=== PATIENT | female | born 1960 | race Caucasian/White ===

== ENCOUNTER 2023-06-11 17:28 | Outpatient (RCR) | payer OTHER, SELFPAY | END 2023-06-11 23:59 | disposition home or self-care (01) | LOC: RPT 17:28 | PROVIDERS: ATTENDING PHYSICIAN Obstetrics & Gynecology; PRIMARYCARE PHYSICIAN Physician Assistant Medical | DX: N39.41 Urge incontinence (principal); R35.1 Nocturia; Z73.6 Limitation of activities due to disability; M54.9 Dorsalgia, unspecified; L40.50 Arthropathic psoriasis, unspecified; G89.29 Other chronic pain | CPT/HCPCS: 97110; 97535 ==

== ENCOUNTER 2023-07-02 16:48 | Outpatient (RCR) | payer OTHER, SELFPAY | END 2023-07-02 23:59 | disposition home or self-care (01) | LOC: RPT 16:48 | PROVIDERS: ATTENDING PHYSICIAN Obstetrics & Gynecology; PRIMARYCARE PHYSICIAN Physician Assistant Medical | DX: N39.41 Urge incontinence (principal); R35.1 Nocturia; Z73.6 Limitation of activities due to disability | CPT/HCPCS: 97014; 97110; 97112 ==

== ENCOUNTER 2023-07-30 07:33 | Outpatient (RCR) | payer OTHER, SELFPAY | END 2023-07-31 08:24 | disposition home or self-care (01) | LOC: RPT 07:33 | PROVIDERS: ATTENDING PHYSICIAN Obstetrics & Gynecology; PRIMARYCARE PHYSICIAN Physician Assistant Medical | DX: N39.41 Urge incontinence (principal); R35.1 Nocturia; Z73.6 Limitation of activities due to disability | CPT/HCPCS: 97110; 97112 ==

== ENCOUNTER → 2024-01-21 14:26 | Outpatient (REF) | payer OTHER, SELFPAY | LOC: RAD 14:26 | PROVIDERS: ATTENDING PHYSICIAN Student in an Organized Health Care Education/Training Program; FAMILY PHYSICIAN Physician Assistant Medical | DX: R10.9 Unspecified abdominal pain (principal) | CPT/HCPCS: 74160; Q9967 ==

== ENCOUNTER → 2024-01-28 16:48 | Outpatient (REF) | payer OTHER, SELFPAY | LOC: WDC 16:48 | PROVIDERS: ATTENDING PHYSICIAN Obstetrics & Gynecology; FAMILY PHYSICIAN Physician Assistant Medical | DX: Z12.31 Encounter for screening mammogram for malignant neoplasm of breast (principal) | CPT/HCPCS: 77063; 77067 ==

== ENCOUNTER → 2024-03-08 08:02 | Outpatient (REF) | payer OTHER, SELFPAY | LOC: RAD 08:02 | PROVIDERS: ATTENDING PHYSICIAN Internal Medicine Rheumatology; FAMILY PHYSICIAN Physician Assistant Medical | DX: M81.0 Age-related osteoporosis without current pathological fracture (principal) | CPT/HCPCS: 77080 ==

== ENCOUNTER → 2025-03-13 16:46 | Outpatient (REF) | payer OTHER, SELFPAY | LOC: WDC 16:46 | PROVIDERS: ATTENDING PHYSICIAN Obstetrics & Gynecology; FAMILY PHYSICIAN Physician Assistant Medical | DX: Z12.31 Encounter for screening mammogram for malignant neoplasm of breast (principal) | CPT/HCPCS: 77063; 77067 ==

== ENCOUNTER → 2025-04-28 14:34 | Outpatient (REF) | payer OTHER, SELFPAY | LOC: RAD 14:34 | PROVIDERS: ATTENDING PHYSICIAN Internal Medicine Rheumatology; FAMILY PHYSICIAN Physician Assistant Medical | DX: R74.8 Abnormal levels of other serum enzymes (principal) | CPT/HCPCS: 76700 ==